=== PATIENT | female | born 1940 ===

== ENCOUNTER 2019-03-09 08:47 | Day surgery (SDC) | payer MEDICARE, BC ==
[~2019-03-09] VITALS: Ht 162.6 cm; Wt 54.4 kg
[2019-03-09] VITALS (12 sets, daily range): BP systolic 111–136; BP diastolic 45–71
[~2019-03-09 08:47] MED LIST: Lidocaine 1% Plain 30 ml INJ ONE
[2019-03-09] MEDS ORDERED: EPINEPHrine 1mg/1ml Amp ONE (08:54)
[2019-03-09] MEDS ORDERED: Dexamethasone 4mg/ml vial ONE (08:54)
[2019-03-09] MEDS ORDERED: Hydrogen Peroxide 473ml Bottle TOPIC ONE (08:55)
[2019-03-09] MEDS ORDERED: Ropivacaine 5mg/ml Vial 30ml INJ ONE ×2 (08:55→11:05)
[2019-03-09] MEDS ORDERED: SYMBICORT 16010.2 G1 IH (09:44)
[2019-03-09] MEDS ORDERED: VITAMIN E400 INTLU ORAL (09:44)
[2019-03-09] MEDS ORDERED: FISH OIL CAP1000 MG ORAL (09:44)
[2019-03-09] MEDS ORDERED: VITAMIN D-40400 UNIT ORAL (09:44)
[2019-03-09] MEDS ORDERED: LR 1000ml 1,000 ML IVLG SCH (09:47)
--- NOTE | 2019-03-09 09:53 | Anethesia Preoperative Eval ---
Anesthesia Pre-op PMH/ROS General Date of Evaluation: Mar 09, 2019 Time of Evaluation: 10:24 Anesthesiologist: Genesis ASA Score: ASA 3 Mallampati Score Class I : Soft palate, uvula, fauces, pillars visible Class II: Soft palate, uvula, fauces visible Class III: Soft palate, base of uvula visible Class IV: Only hard plate visible Mallampati Classification: Class II Surgeon: Capioendo Diagnosis: Rectal Lesion Surgical Procedure: Transanal Excision of Rectal Lesion Anesthesia History: none Social History: smoking Family History: no anesthesia problems Allergies: Coded Allergies: ASPIRIN (Verified Allergy, Severe, 03/09/19) SKIN RASH,ITCHING CODEINE (Verified Allergy, Severe, 03/09/19) SKIN RASH,ITCHING HYDROCODONE (Verified Allergy, Severe, 03/09/19) SKIN RASH,ITCHING IBUPROFEN (Verified Allergy, Severe, 03/09/19) SKIN RASH,ITCHING LEVOFLOXACIN (Verified Allergy, Severe, 03/09/19) TONGUE/LIP SWELLING,DIFFICULTY BREATHING PENICILLINS (Verified Allergy, Severe, 03/09/19) SKIN RASH,ITCHING Uncoded Allergies: CAT (Allergy, Severe, 03/09/19) LIP/EYES SWELLING Medications: see eMAR Patient NPO?: Yes Past Medical History Cardiovascular: Reports: HTN Pulmonary: Reports: asthma, COPD HEENT: Reports: cataract (L), cataract (R) PSxH Narrative: Lap Appy, Abscess, Small Bowel Resection, L Breast lumpectomy, C/S, R Shoulder Arthroscopy, R Knee Injection Anesthesia Pre-op Phys. Exam Physician Exam Last Vital Signs Date Time Temp Pulse Resp B/P (MAP) Pulse Ox O2 Delivery O2 Flow Rate FiO2 03/09/19 09:44 97.0 68 20 127/69 97 Room Air Constitutional: NAD Neurologic: CN 2-12 intact Cardiovascular: RRR Respiratory: CTA Gastrointestinal: S/NT/ND Airway Exam Mallampati Score: Class II MO: limited ROM: limited Teeth: missing, intact Anesthesia Pre-op A/P Risk Assessment & Plan Assessment: ASA 3 Plan: GA, SED Status Change Before Surgery: No Pre-Antibiotics Dru Gram Cefoxitin IV Given Within 1 Hr of Incision: Yes Time Given: 10:39 Jv Hurtado MD Mar 09, 2019 09:53
--- NOTE | 2019-03-09 09:56 | Immediate Post-Op Evaluation ---
Immediate Post-Op Evalulation Immediate Post-Op Evalulation Procedure: Transanal Excision of Rectal Lesion Date of Evaluation: Mar 09, 2019 Time of Evaluation: 11:30 IV Fluids: 700 LR Blood Products: 0 Estimated Blood Loss: 10 Urinary Output: 0 Blood Pressure Systolic: 111 Blood Pressure Diastolic: 59 Pulse Rate: 82 Respiratory Rate: 16 O2 Sat by Pulse Oximetry: 100 Temperature (Fahrenheit): 97.8 Pain Score (1-10): 2 Nausea: No Vomiting: No Complications 0 Patient Status: awake, reacts, patent, none Hydration Status: adequate Dru Gram Cefoxitin IV Given Within 1 Hr of Incision: Yes Time Given: 10:39 Jv Hurtado MD Mar 09, 2019 09:56
--- NOTE | 2019-03-09 09:57 | 48 Hour Post Anesthesia Eval ---
Post Anesthesia Evaluation Procedure: Transanal Excision of Rectal Lesion Date of Evaluation: Mar 09, 2019 Time of Evaluation: 13:44 Blood Pressure Systolic: 143 0: 77 Pulse Rate: 79 Respiratory Rate: 18 Temperature (Fahrenheit): 98.1 O2 Sat by Pulse Oximetry: 99 Airway: patent Nausea: No Vomiting: No Pain Intensity: 2 Hydration Status: adequate Cardiopulmonary Status: Stable Mental Status/LOC: patient returned to baseline Follow-up Care/Observations: 0 Post-Anesthesia Complications: 0 Follow-up care needed: ready to discharge Jv Hurtado MD Mar 09, 2019 09:57
[2019-03-09] MEDS ORDERED: Meperidine 50mg/ml Inj(FOR RIGORS ONLY) IVP PRN (10:00)
[2019-03-09] MEDS ORDERED: Labetalol 5mg/ml 20ml vial IV PRN (10:00)
[2019-03-09] MEDS ORDERED: LORazepam Inj 2mg/ml 1ml IV PRN (10:00)
[2019-03-09] MEDS ORDERED: DiphenhydrAMINE 50mg/ml Inj IVP PRN (10:00)
[2019-03-09] MEDS ORDERED: Atropine Sulfate 0.4mg/ml inj IVP PRN (10:00)
[2019-03-09] MEDS ORDERED: Midazolam 2mg/2ml Inj IVP PRN (10:00)
[2019-03-09] MEDS ORDERED: Metoclopramide 10mg/2ml Inj IVP PRN (10:00)
[2019-03-09] MEDS ORDERED: Acetaminophen (Non formulary) 100 ML IV ONE (10:00)
[2019-03-09] MEDS ORDERED: cefOXitin 1gm Inj ONE (10:03)
[2019-03-09] MEDS ORDERED: Sodium Chloride 10ml vial INJ ONE (10:04)
--- NOTE | 2019-03-09 10:23 | Pre-Procedure Note/Attestation ---
Pre-Procedure Note/Attestation Complete Prior to Procedure Planned Procedure: not applicable Procedure Narrative: Transanal excision of rectal lesion Indications for Procedure Pre-Operative Diagnosis: Rectal lesion Attestation I attest that I discussed the nature of the procedure; its benefits; risks and complications; and alternatives (and the risks and benefits of such alternatives ), prior to the procedure, with the patient (or the patient's legal financial representative). I attest that, if there was a reasonable possibility of needing a blood transfusion, the patient (or the patient's legal financial representative) was given the [facility] standardized written summary, pursuant to the Gamaliel Manuel Blood Safety Act ([place] Health and Safety Code # 1645, as amended). I attest that I re-evaluated the patient just prior to the surgery and that there has been no change in the patient's H&P, except as documented below: Christin Hines MD Mar 09, 2019 10:23
[2019-03-09] MEDS ORDERED: NS Irrig 1000ml ONE (10:30)
[2019-03-09] MEDS ORDERED: Sterile Water Irrig 1000ml IRRIG ONE (10:30)
[2019-03-09] MEDS ORDERED: Propofol 200mg/20ml IV ONE (10:30)
[2019-03-09] MEDS ORDERED: Flumazenil 0.1mg/ml 5ml Inj IV ONE (10:59)
[2019-03-09] MEDS ORDERED: Dexamethasone 4mg/ml vial INJ ONE (11:04)
--- NOTE | 2019-03-09 11:16 | Brief Operative Note ---
Immediate Post Operative Note Operative Note Pre-op Diagnosis: Rectal lesion Procedure: Transanal excision of rectal lesion Post-op Diagnosis: Rectal lesion Post-op Diagnosis: same as pre-op Findings: consistent w/pre-op dx studies Surgeon: Christin Hines MD Anesthesiologist: Jv Hurtado MD Anesthesia: moderate sedation Specimen: yes Complications: none Condition: stable Fluids: see anesthesia record Estimated Blood Loss: minimal Drains: none Implant(s) used?: No Christin Hines MD Mar 09, 2019 11:16
[2019-03-09] MEDS: fentaNYL 100 mcg/2 mL IV PRN ×2 (11:38→11:55)
--- NOTE | 2019-03-09 18:45 | Operative Note - Dictated ---
DATE OF OPERATION: 03/09/2019 PREPROCEDURE DIAGNOSIS: Rectal lesion. POSTPROCEDURE DIAGNOSIS: Rectal lesion. PROCEDURE: Transanal excision of rectal lesion. SURGEON: Christin Hines M.D. ANESTHESIOLOGIST: Jv Hurtado M.D. ANESTHESIA: Propofol sedation with local anesthetic. INDICATION FOR PROCEDURE: The patient is an 78-year-old female who was sent to my office by her writing manager, Dr. Meredith Wilkerson, for colorectal surgical evaluation of a rectal lesion seen on recent colonoscopy. Colonoscopy was done by Dr. Wilkerson on 02/16/2019, which showed a friable, flat, red, sessile mass present in the rectum on top of the hemorrhoidal lesion and typical for hemorrhoidal pile. In light of the patient's findings, it was determined at this time to proceed with excision under sedation. DESCRIPTION OF PROCEDURE: Upon consent of the patient, the patient was brought to the operating room and placed in the prone grover-knife position on the operating table. Once intravenous sedation was established, the patient's buttocks were prepped and draped in usual surgical fashion. A 3 mL of 0.5% ropivacaine with epinephrine mixed with 6 mg of dexamethasone was used as a perianal and pudendal block. A Hill-Jordan retractor was placed into the anal canal. There is a friable flat approximately 1 cm lesion in the anterior distal rectum, which was right adjacent to the femoral tissue. This was excised in elliptical fashion along with the hemorrhoid and sent off of the field as specimen. The mucosal defect was closed with a running 2-0 Vicryl suture. There was another prolapsed hemorrhoid in the right lateral region, which was also excised in a likewise manner. It was also closed in a likewise manner. The anal canal was then irrigated and hemostasis was confirmed. There was noted to be moderate internal hemorrhoids remaining. The patient also had an anterior anal skin tag, which she requested to be left alone since it was not causing her any issues. Sterile dressing was applied. Sponge and instrument counts were correct at the end the case. The patient was awakened by anesthesia and brought to the postanesthesia recovery in stable condition. ESTIMATED BLOOD LOSS: 5 mL. DRAINS: None. SPECIMEN: Rectal lesion with hemorrhoids. COMPLICATIONS: None. Christin Hines M.D. DR: MAREK JOB#: [id number] CC: Meredith Wilkerson M.D.; Fax#: [phone] Natalie Giraldo M.D.
== END 2019-03-09 13:15 | disposition home or self-care (01) ==
LOC: SUR 08:47
DX: K63.9 Disease of intestine, unspecified (principal); F17.200 Nicotine dependence, unspecified, uncomplicated; Z88.6 Allergy status to analgesic agent; Z88.0 Allergy status to penicillin; I10 Essential (primary) hypertension; Z90.89 Acquired absence of other organs
CPT/HCPCS: 45171; J0171; J0694; J1100; J2001; J2250; J2704; J2795; J3010; 94003; 94150